=== PATIENT | male | born 1950 | race Caucasian/White ===

== ENCOUNTER 2019-12-30 18:07 | Inpatient (IN) | payer MEDICARE, OTHER ==
[~2019-12-30] VITALS: Ht 167.6 cm; Wt 88.5 kg
--- NOTE | 2019-12-30 18:30 | NUR ---
PT IS IN ROOM #4A. PT AND HIS DOUGHTER DID NOT BRING PT's HOME MEDICATION LIST. THEY RELATIVES ARE GOING TO BRING IT LATER.
--- NOTE | 2019-12-30 19:23 | NUR ---
dr Bello evaluated the pt.
[2019-12-30 19:26] LABS: BASOPHILS % (AUTO) 0.4 % (0.0-2.0); HEMATOCRIT 40.3 % (36.7-47.1); HEMOGLOBIN 13.5 g/dL (12.5-16.3); LYMPHOCYTES # (AUTO) 0.3 K/uL (20.0-40.0); LYMPHOCYTES % (AUTO) 2.5 % (20.5-51.5); MEAN CORPUSCULAR HEMOGLOBIN 30.3 uug (23.8-33.4); MEAN CORPUSCULAR HGB CONC 34 g/dL (32.5-36.3); MONOCYTES # (AUTO) 0.5 K/uL (2.0-10.0); MONOCYTES % (AUTO) 4.5 % (0.0-11.0); NEUTROPHILS # (AUTO) 10.5 K/uL (1.8-8.9); NEUTROPHILS % (AUTO) 92.6 % (38.5-71.5); PLATELET COUNT (AUTO) 178 K/uL (152-348); RED BLOOD CELL COUNT(AUTO) 4.47 MIL/uL (4.06-5.63); WHITE BLOOD COUNT (AUTO) 11.3 K/uL (3.6-10.2)
[2019-12-30 19:49] LABS: BILIRUBIN,DIRECT 0.3 mg/dL (0.0-0.2); BILIRUBIN,TOTAL 1.3 mg/dL (0.2-1.0); CREATININE 1.1 mg/dL (0.6-1.3); POTASSIUM 3.9 mmol/L (3.5-5.1); TOTAL PROTEIN, SERUM 6.9 g/dL (6.4-8.2)
[2019-12-30 19:49] LABS: *BILIRUBIN,URIN 2+ (NEGATIVE); *CLARITY,URINE CLEAR (CLEAR); *COLOR,URINE AMBER (YELLOW); *KETONES,URINE 1+ (NEGATIVE); LEUKOCYTE ESTERASE ,URINE 1+ (NEGATIVE); NITRITE, URINE POSITIVE (NEGATIVE); UGLUCOSE TRACE (NEGATIVE)
[2019-12-30 19:50] LABS: *BLOOD, URINE TRACE (NEGATIVE)
[2019-12-30 19:52] LABS: BACTERIA,URINE 2+ /HPF (NONE SEEN); MUCUS,URINE MANY /LPF (0-FEW); WBC,URINE 20-50 /HPF (0-3)
[2019-12-30] MEDS ORDERED: CEFTRIAXONE 1 G in IV DEXTROSE 5% 50 ML IV ONE (20:00)
[2019-12-30] MEDS ORDERED: CEFTRIAXONE /D5W 50ML IVPB **ER PYXIS IV ONE (20:36)
[2019-12-30 21:00] VITALS: BP 124/68
--- NOTE | 2019-12-30 21:06 | NUR ---
REPORT WAS GIVEN TO PATIENT CARE ASSOCIATE. PT WAS TRANSFERED TO ROOM #303.
[2019-12-30] MEDS ORDERED: MORPHINE SULFATE 2 MG/1 ML DISP.SYRIN IV PRN (21:45)
[2019-12-30] MEDS ORDERED: ONDANSETRON 4 MG/2 ML VIAL IV PRN (21:45)
[2019-12-30] MEDS ORDERED: ACETAMINOPHEN 325 MG TABLET PO PRN (21:45)
[2019-12-30] MEDS ORDERED: ENALAPRILAT DIHYDRATE 1.25 MG/1 ML VIAL IV PRN (21:45)
[2019-12-30] MEDS ORDERED: TEMAZEPAM 15 MG CAPSULE PO PRN (21:45)
[2019-12-30] MEDS ORDERED: MAGNESIUM HYDROXIDE 30 ML LIQUID UDC PO PRN (21:45)
[2019-12-31] VITALS: BP 112/58
--- NOTE | 2019-12-31 01:56 | NUR ---
ADMITTED, MALE WITH CHIEF COMPLAINED OF ALTERED MENTAL STATUS AND UTI ACCOMPANIED BY DAUGHTER. PT SPEAKS UKRAINIAN AND SALVADOREAN..PATIENT INCONTINENT OF URINE,CHANGED AND MADE COMFORTABLE.TELEMETRY SINUS RHYTHM WITH BUNDLE BRANCH.NO COMPLAINTS OF PAIN.
[2019-12-31 04:00] VITALS: BP 103/55
[2019-12-31 05:51] LABS: BASOPHILS % (AUTO) 0.7 % (0.0-2.0); EOSINOPHILS % (AUTO) 0.6 % (0.0-7.0); HEMATOCRIT 38.7 % (36.7-47.1); HEMOGLOBIN 13.1 g/dL (12.5-16.3); LYMPHOCYTES # (AUTO) 0.8 K/uL (20.0-40.0); LYMPHOCYTES % (AUTO) 11.8 % (20.5-51.5); MEAN CORPUSCULAR HEMOGLOBIN 30.3 uug (23.8-33.4); MEAN CORPUSCULAR HGB CONC 34 g/dL (32.5-36.3); MEAN CORPUSCULAR VOLUME 89.8 fL (73.0-96.2); MONOCYTES # (AUTO) 0.6 K/uL (2.0-10.0); MONOCYTES % (AUTO) 8.4 % (0.0-11.0); NEUTROPHILS # (AUTO) 5.4 K/uL (1.8-8.9); NEUTROPHILS % (AUTO) 78.5 % (38.5-71.5); PLATELET COUNT (AUTO) 173 K/uL (152-348); RED BLOOD CELL COUNT(AUTO) 4.31 MIL/uL (4.06-5.63); WHITE BLOOD COUNT (AUTO) 6.9 K/uL (3.6-10.2)
--- NOTE | 2019-12-31 06:09 | NUR ---
slept most of the nite,up in the bathroom with help, speaks arminian. in no acute distress.
[2019-12-31 06:31] LABS: BILIRUBIN,TOTAL 0.8 mg/dL (0.2-1.0); CREATININE 1.1 mg/dL (0.6-1.3); MAGNESIUM 1.8 mg/dL (1.8-2.4); PHOSPHOROUS 3.6 mg/dL (2.5-4.9); POTASSIUM 3.7 mmol/L (3.5-5.1); TOTAL PROTEIN, SERUM 6.3 g/dL (6.4-8.2)
[2019-12-31] MEDS ORDERED: TEMAZEPAM 7.5 MG CAPSULE PO PRN (06:45)
[2019-12-31 07:50] LABS: THYROID STIMULATING HORMONE 1.017 mIU/mL (0.358-3.740)
[2019-12-31] MEDS: ASPIRIN EC 81 MG TABLET.DR PO SCH (07:59)
[2019-12-31] MEDS: PANTOPRAZOLE SODIUM 40 MG TABLET.DR PO SCH (07:59)
[2019-12-31] MEDS: NICOTINE 21 MG/24HR PATCH TD SCH (11:49)
[2019-12-31 11:57] VITALS: BP 115/78
[2019-12-31 11:59] VITALS: BP 108/69
[2019-12-31 15:55] VITALS: BP 113/57
--- NOTE | 2019-12-31 19:30 | NUR ---
ALERT ORIENTED, SPEAK ESTONIAN, AT BEDSIDE. NO SOB NO CHEST PAIN, TELE MONITOR SINUS RHYTHM. PATIENT HAS NO COMPLAIN OF PAIN AT THIS TIME, CONT TO MONITOR.
[2019-12-31] MEDS ORDERED: CEFTRIAXONE 1 G in IV DEXTROSE 5% 50 ML IV SCH (20:00)
[2019-12-31 20:17] VITALS: BP 131/83
[2019-12-31] MEDS ORDERED: DOCUSATE SODIUM 250 MG CAPSULE PO SCH (21:00)
[2019-12-31] MEDS ORDERED: DOCUSATE SODIUM 100 MG CAPSULE PO SCH (21:00)
[2020-01-01 05:02] VITALS: BP 126/79
[2020-01-01] MEDS: PANTOPRAZOLE SODIUM 40 MG TABLET.DR PO SCH (06:33)
[2020-01-01 07:18] LABS: BASOPHILS % (AUTO) 0.8 % (0.0-2.0); EOSINOPHILS # (AUTO) 0.1 K/uL (0.0-0.7); EOSINOPHILS % (AUTO) 1.6 % (0.0-7.0); HEMATOCRIT 39.1 % (36.7-47.1); HEMOGLOBIN 12.9 g/dL (12.5-16.3); LYMPHOCYTES % (AUTO) 21.7 % (20.5-51.5); MEAN CORPUSCULAR HGB CONC 33 g/dL (32.5-36.3); MEAN CORPUSCULAR VOLUME 91.2 fL (73.0-96.2); MONOCYTES # (AUTO) 0.4 K/uL (2.0-10.0); MONOCYTES % (AUTO) 9.4 % (0.0-11.0); NEUTROPHILS # (AUTO) 3.2 K/uL (1.8-8.9); NEUTROPHILS % (AUTO) 66.5 % (38.5-71.5); PLATELET COUNT (AUTO) 152 K/uL (152-348); RED BLOOD CELL COUNT(AUTO) 4.29 MIL/uL (4.06-5.63)
[2020-01-01 07:24] LABS: CREATININE 0.8 mg/dL (0.6-1.3); MAGNESIUM 2.1 mg/dL (1.8-2.4); PHOSPHOROUS 3.4 mg/dL (2.5-4.9); POTASSIUM 3.8 mmol/L (3.5-5.1)
--- NOTE | 2020-01-01 07:29 | NUR ---
PATIENT ALERT SPEAK FAROESE, BUT UNDERSTAND TUVALUAN. TELE MONITOR SINUS RHYTHM. PATIENT ASSISTED WITH TOILETING, RENDERED GOOD SOPHIE CARE. PATIENT WAS MOVED TO CLOSE TO STATION RISK FOR FALL AND INJURY CONT TO MONITOR.
[2020-01-01 07:35] LABS: WHITE BLOOD COUNT (AUTO) 4.8 K/uL (3.6-10.2)
--- NOTE | 2020-01-01 07:50 | NUR ---
Patient is resting in bed, wakes up easily. Patient is A/O x 4. No distress noted. Heplock is intact. Sinus rhythm. Pt denies distress or pain.
[2020-01-01 08:00] VITALS: BP 134/77
[2020-01-01] MEDS: ASPIRIN EC 81 MG TABLET.DR PO SCH (09:19)
[2020-01-01] MEDS: NICOTINE 21 MG/24HR PATCH TD SCH (09:20)
[2020-01-01 12:10] VITALS: BP 118/77
[2020-01-01 16:14] VITALS: BP 134/84
--- NOTE | 2020-01-01 18:34 | NUR ---
patient is being discharged home. Pt's is here to pick him up. Discharge instructions are given, including prescriptions and abx treatment. Pt and his verbalize understanding. VS are stable, no distress. Heplock removed, no bleeding. All belongings returned.
== END 2020-01-01 18:36 | disposition home or self-care (01) | DRG 871 ==
LOC: ER 18:18 → TELE3 20:52 → MEDSURG3 01-01 13:18
PROVIDERS: ADMIT Internal Medicine; ATTEND Internal Medicine
DX: A41.51 Sepsis due to Escherichia coli [E. coli] (principal); G92 Toxic encephalopathy; I50.31 Acute diastolic (congestive) heart failure; N39.0 Urinary tract infection, site not specified; D68.59 Other primary thrombophilia; I11.0 Hypertensive heart disease with heart failure; F01.50 Vascular dementia, unspecified severity, without behavioral disturbance, psychotic disturbance, mood disturbance, and anxiety; M50.30 Other cervical disc degeneration, unspecified cervical region; F17.210 Nicotine dependence, cigarettes, uncomplicated; Z98.84 Bariatric surgery status; Z86.73 Personal history of transient ischemic attack (TIA), and cerebral infarction without residual deficits; K59.00 Constipation, unspecified; H40.9 Unspecified glaucoma; Z74.09 Other reduced mobility; E80.6 Other disorders of bilirubin metabolism; Z87.440 Personal history of urinary (tract) infections; Z79.82 Long term (current) use of aspirin; Z68.31 Body mass index [BMI] 31.0-31.9, adult; N40.0 Benign prostatic hyperplasia without lower urinary tract symptoms; I70.0 Atherosclerosis of aorta; I45.10 Unspecified right bundle-branch block; E66.9 Obesity, unspecified
CPT/HCPCS: 36415; 70030-TC; 70450; 71045; 72125; 83605; 83735; 84100; 84153; 84443; 85025; 85730; 87040; 87077; 87086; 93005; 93307; A4663; G0378; J0696; J3490; J7030; J7060

== ENCOUNTER 2021-04-20 18:33 | Inpatient (IN) | payer MEDICARE, OTHER ==
[~2021-04-20] VITALS: Ht 162.6 cm; Wt 86.2 kg
[~2021-04-20 18:33] MED LIST: AMLO10TA4 PO; ASPI-618 PO; CRAN450T9 PO; DOCU100C36 PO; HYDR12.55 PO; LEVO500T2 PO; MULT-594 PO; NICO-780 TD
--- NOTE | 2021-04-20 18:49 | NUR ---
Dr Jenkins at the bedside for MSE.
[2021-04-20] MEDS ORDERED: IV NS 1000 ML 1,000 ML IV ONE (19:00)
--- NOTE | 2021-04-20 19:08 | NUR ---
COVID 19 swab collected and sent to LAB.
--- NOTE | 2021-04-20 19:09 | NUR ---
Handsoff report given to Pete ARRIAGA, shift foreman.
[2021-04-20 19:14] LABS: HEMATOCRIT 38.2 % (36.7-47.1); MEAN CORPUSCULAR VOLUME 91.6 fL (73.0-96.2); PLATELET COUNT (AUTO) 174 K/uL (152-348)
[2021-04-20 19:16] LABS: CREATININE 0.9 mg/dL (0.6-1.3); POTASSIUM 3.7 mmol/L (3.5-5.1)
[2021-04-20 19:21] LABS: BILIRUBIN,DIRECT 0.1 mg/dL (0.0-0.2); BILIRUBIN,TOTAL 0.4 mg/dL (0.2-1.0); TOTAL PROTEIN, SERUM 6.6 g/dL (6.4-8.2)
--- NOTE | 2021-04-20 19:52 | NUR ---
Inserted pearson catheter, pt tolerated procedure well, urine sample collected, sent to lab.
[2021-04-20 19:58] LABS: *BILIRUBIN,URIN 1+ (NEGATIVE); *BLOOD, URINE 3+ (NEGATIVE); *CLARITY,URINE CLEAR (CLEAR); *COLOR,URINE YELLOW (YELLOW); *KETONES,URINE 1+ (NEGATIVE); LEUKOCYTE ESTERASE ,URINE 1+ (NEGATIVE); NITRITE, URINE NEGATIVE (NEGATIVE); UGLUCOSE NEGATIVE (NEGATIVE)
[2021-04-20 20:16] LABS: BACTERIA,URINE FEW /HPF (NONE SEEN); RBC,URINE 20-50 /HPF (0-3); SQUAMOUS EPITHELIAL CELL,UR FEW /HPF (NONE SEEN)
[2021-04-20 20:17] LABS: RED BLOOD CELL CASTS,URINE FEW /LPF (NONE SEEN)
[2021-04-20] MEDS ORDERED: CEFTRIAXONE /D5W 50ML IVPB **ER PYXIS IV ONE (20:26)
[2021-04-20] MEDS ORDERED: CEFTRIAXONE 1 G in IV DEXTROSE 5% 50 ML IV ONE (20:30)
--- NOTE | 2021-04-20 20:54 | NUR ---
[facility]ed [facility] page Daphnie Naranjo NP.
--- NOTE | 2021-04-20 21:05 | NUR ---
Dr. Jenkins on panel call with Daphnie Naranjo. Patient accepted for admission to [facility], diagnosis: near syncope and uti.
--- NOTE | 2021-04-20 22:16 | NUR ---
Report given to Melani ARRIAGA Tele.
--- NOTE | 2021-04-20 22:30 | NUR ---
in from er per sheela with cc of near syncope,UTI, fixed in bed and made comfortable.
--- NOTE | 2021-04-20 22:58 | NUR ---
JUAN C Naranjo paged for admitting orders . called and talked to the patient , responded will do the orders now,
--- NOTE | 2021-04-20 23:18 | NUR ---
Awaiting for orders from JUAN C Naranjo
[2021-04-20] MEDS ORDERED: IV NS 1000 ML 1,000 ML IV PRN (23:30)
[2021-04-20] MEDS ORDERED: ACETAMINOPHEN 325 MG TABLET PO PRN (23:30)
[2021-04-20] MEDS ORDERED: ONDANSETRON 4 MG/2 ML VIAL IV PRN (23:30)
[2021-04-20] MEDS ORDERED: MAGNESIUM HYDROXIDE 30 ML LIQUID UDC PO PRN (23:30)
[2021-04-20] MEDS ORDERED: Z GUARD REMEDY PASTE 57 GM TUBE TOP PRN (23:30)
[2021-04-20 23:43] VITALS: BP 107/55
--- NOTE | 2021-04-20 23:51 | NUR ---
with orders and carried out, medication from home not yet reconciled but is aware
--- NOTE | 2021-04-21 02:13 | NUR ---
Sleeping internittently
--- NOTE | 2021-04-21 03:44 | NUR ---
ambulated to the bedside and voided freely.noted a reddened area to the middle of the nape draining with small amount of serosanguineous drainage. picture taken, back to bed and kept comfortable. with bed alarm on with call light within reach
[2021-04-21 04:46] VITALS: BP 109/55
[2021-04-21 06:25] VITALS: BP_SYST 102; BP_SYST 116; BP_SYST 122; BP_DIAS 54; BP_DIAS 76
[2021-04-21 06:46] LABS: HEMATOCRIT 37.2 % (36.7-47.1); MEAN CORPUSCULAR HEMOGLOBIN 31.1 uug (23.8-33.4); PLATELET COUNT (AUTO) 151 K/uL (152-348)
[2021-04-21] MEDS: PANTOPRAZOLE SODIUM 40 MG TABLET.DR PO SCH (06:50)
[2021-04-21 06:54] LABS: CREATININE 0.7 mg/dL (0.6-1.3); MAGNESIUM 1.8 mg/dL (1.8-2.4); PHOSPHOROUS 3.5 mg/dL (2.5-4.9); POTASSIUM 3.4 mmol/L (3.5-5.1)
--- NOTE | 2021-04-21 07:00 | NUR ---
RECEIVED PT AWAKE, ALERT AND ORIENTEDX3. PT IN NO ACUTE DISTRESS. IV INTACT. PT ON ROOM AIR. PT ON SINUS RHYTHM. SAFETY AND COMFORT PROVIDED. WILL CONTINUE TO MONITOR.
--- NOTE | 2021-04-21 07:23 | NUR ---
home medication not reconciled Radha Bedoya is aware, day shift rn is aware and will follow up with the physician today
[2021-04-21 07:29] LABS: THYROID STIMULATING HORMONE 1.269 mIU/mL (0.358-3.740)
[2021-04-21] MEDS ORDERED: POTASSIUM CHLORIDE 20 MEQ TAB.PRT.SR PO ONE (10:00)
--- NOTE | 2021-04-21 11:00 | NUR ---
called and ask update regarding her .PT stable. Will continue to monitor.
[2021-04-21 12:00] VITALS: BP 114/60
--- NOTE | 2021-04-21 15:40 | NUR ---
DR DALTON TALKED WITH THE PT AND .
[2021-04-21] MEDS: POTASSIUM CHLORIDE 20 MEQ in IV NS 1000 ML 1,000 ML IV PRN (16:33)
[2021-04-21 16:59] VITALS: BP 134/59
--- NOTE | 2021-04-21 18:58 | NUR ---
PT IN NO ACUTE DISTRESS. IV INTACT. PT ON SINUS RHYTHM. SAFETY AND COMFORT PROVIDED. WILL ENDORSE TO INCOMING NURSE FOR CONTINUITY OF CARE.
--- NOTE | 2021-04-21 19:30 | NUR ---
Patient alert speak Prydeinig but understand Latvian, tele monitor sinus rhythm at this time. Patient has no complain of pain, no sob no chest pain. Patient forgetful, forget to use call lights, get up by himself wants to go to bathroom, bed alarm in place will move patient close to the station for close monitoring. cont to monitor.
[2021-04-21 20:10] VITALS: BP 113/63
[2021-04-21] MEDS: CEFTRIAXONE 1 G in IV DEXTROSE 5% 50 ML IV SCH (20:23)
[2021-04-21] MEDS: DOCUSATE SODIUM 100 MG CAPSULE PO SCH (20:24)
[2021-04-21] MEDS: ATORVASTATIN 10 MG TABLET PO SCH (20:24)
--- NOTE | 2021-04-21 23:00 | NUR ---
Patient was moved from 301B to 311 close to station for close monitoring.
[2021-04-22 00:05] VITALS: BP 119/84
[2021-04-22 04:11] VITALS: BP 116/77
[2021-04-22 06:05] LABS: HEMATOCRIT 40.1 % (36.7-47.1); MEAN CORPUSCULAR HEMOGLOBIN 30.5 uug (23.8-33.4); MEAN CORPUSCULAR VOLUME 91.7 fL (73.0-96.2); PLATELET COUNT (AUTO) 156 K/uL (152-348)
[2021-04-22 06:26] LABS: CARBON DIOXIDE 27 mmol/L (21-32); CHLORIDE 108 mmol/L (98-107); CREATININE 0.6 mg/dL (0.6-1.3); GLUCOSE 91 mg/dL (74-106); MAGNESIUM 1.8 mg/dL (1.8-2.4); PHOSPHOROUS 3.4 mg/dL (2.5-4.9); POTASSIUM 3.7 mmol/L (3.5-5.1); UREA NITROGEN, BLOOD 13 mg/dL (7-18)
[2021-04-22] MEDS: PANTOPRAZOLE SODIUM 40 MG TABLET.DR PO SCH (06:28)
--- NOTE | 2021-04-22 07:06 | NUR ---
PATIENT ALERT BUT FORGETFUL, NO SOB NO CHEST PAIN, SINUS RHYTHM AT THIS TIME. PATIENT HAS MULTIPLE ATTEMPT TO GET OUT OF BED BUT FORGET TO ASK FOR ASSISTANCE, ASSISTED WITH TOILETING, ALSO USES URINAL, CONT TO MONITOR.
--- NOTE | 2021-04-22 07:51 | NUR ---
awake and responsive, trying to get up unassisted. reoriented but patient is confused. no acute distress. iv intact and infusing well. safety and fall precautions maintained. personal items and call light in reach. patient is encouraged to use call light continue to monitor.
[2021-04-22] MEDS: MULTIVITAMINS,THERAPEUTIC TABLET PO SCH (08:13)
[2021-04-22] MEDS: ASPIRIN EC 81 MG TABLET.DR PO SCH (08:13)
[2021-04-22] MEDS ORDERED: Medication Not On Formulary EA (Multivitamins (Multivitamin) 1 EACH) PO SCH (09:00)
[2021-04-22] MEDS: POTASSIUM CHLORIDE 20 MEQ in IV NS 1000 ML 1,000 ML IV PRN (10:04)
[2021-04-22 11:18] VITALS: BP 119/67
--- NOTE | 2021-04-22 13:00 | NUR ---
Patient seen by JUAN C Perdomo, at bedside.
--- NOTE | 2021-04-22 14:50 | NUR ---
Patient still trying to get up from bed unassisted. Reoriented. Frequent visual checks done. Needs attended. Will continue to monitor.
[2021-04-22 15:16] VITALS: BP 132/80
--- NOTE | 2021-04-22 18:56 | NUR ---
Alert and oriented but with episodes of confusion and forgetfulness. In no acute distress. No s/sx of pain or discomfort. Due meds given and tolerated. Prefers to void in the urinal or bathroom. No hematuria noted. No dysuria noted. Safety and fall precautions maintained at all times. Personal items within reach. Bed is low and locked. Patient is comfortable.
[2021-04-22 20:13] VITALS: BP 112/67
[2021-04-22] MEDS: DOCUSATE SODIUM 100 MG CAPSULE PO SCH (20:27)
[2021-04-22] MEDS: CEFTRIAXONE 1 G in IV DEXTROSE 5% 50 ML IV SCH (20:27)
[2021-04-22] MEDS: ATORVASTATIN 10 MG TABLET PO SCH (20:27)
[2021-04-23 00:16] VITALS: BP 131/73
[2021-04-23] MEDS: POTASSIUM CHLORIDE 20 MEQ in IV NS 1000 ML 1,000 ML IV PRN (03:22)
[2021-04-23 04:09] VITALS: BP 111/67
[2021-04-23 06:31] LABS: HEMATOCRIT 42.1 % (36.7-47.1); MEAN CORPUSCULAR HEMOGLOBIN 30.6 uug (23.8-33.4); MEAN CORPUSCULAR VOLUME 91.8 fL (73.0-96.2); PLATELET COUNT (AUTO) 176 K/uL (152-348)
[2021-04-23] MEDS: PANTOPRAZOLE SODIUM 40 MG TABLET.DR PO SCH (06:36)
[2021-04-23 06:42] LABS: CREATININE 0.7 mg/dL (0.6-1.3); MAGNESIUM 1.9 mg/dL (1.8-2.4)
--- NOTE | 2021-04-23 07:32 | NUR ---
2129 patient has episode of 5 bets of vtach followed by run off pvc. patient alert awake asymptomatic, unstainable, no complain of discomfort, v/s stable, cont to monitor. endorsed to next shift.
[2021-04-23 08:00] VITALS: BP 121/74
--- NOTE | 2021-04-23 08:00 | NUR ---
AWAKE ALERT AND VERBALLY RESPONSIVE, SPEAKS CAPE VERDEAN AND SENEGALESE. DENIES PAIN OR SOB ON ASSESSMENT. AWAITING HOSPITALIST REGARDING PLAN OF CARE
[2021-04-23] MEDS: ASPIRIN EC 81 MG TABLET.DR PO SCH (08:35)
[2021-04-23] MEDS: MULTIVITAMINS,THERAPEUTIC TABLET PO SCH (08:35)
--- NOTE | 2021-04-23 10:00 | NUR ---
SEEN BY PHYSICAL THERAPIST SEE NOTES
[2021-04-23] MEDS ORDERED: CEPH500C2 PO (11:00)
--- NOTE | 2021-04-23 13:00 | NUR ---
SEEN BY HOSPITALIST AYAAN, DISCHARGE ORDER GIVEN. CASE MANGER NOTIFIED, SPOKE WITH XAVI AND SAID WILL EXPORT SALES ASSISTANT PATIENT WITH PRIVATE CAR
--- NOTE | 2021-04-23 13:30 | NUR ---
discharged home stable accompanied by with priscription and follow-up instruction
== END 2021-04-23 13:30 | disposition home or self-care (01) | DRG 871 ==
LOC: ER 18:36 → TELE3 22:25
PROVIDERS: ADMIT Internal Medicine; ATTEND Nurse Practitioner Family
DX: A41.9 Sepsis, unspecified organism (principal); G92 Toxic encephalopathy; I50.31 Acute diastolic (congestive) heart failure; N39.0 Urinary tract infection, site not specified; D68.59 Other primary thrombophilia; E03.9 Hypothyroidism, unspecified; E66.9 Obesity, unspecified; E78.5 Hyperlipidemia, unspecified; F17.210 Nicotine dependence, cigarettes, uncomplicated; I11.0 Hypertensive heart disease with heart failure; F01.50 Vascular dementia, unspecified severity, without behavioral disturbance, psychotic disturbance, mood disturbance, and anxiety; Z20.822 Contact with and (suspected) exposure to COVID-19; Z79.82 Long term (current) use of aspirin; Z86.73 Personal history of transient ischemic attack (TIA), and cerebral infarction without residual deficits; Z74.09 Other reduced mobility; M50.30 Other cervical disc degeneration, unspecified cervical region; M19.09 Primary osteoarthritis, other specified site; K59.00 Constipation, unspecified; H40.9 Unspecified glaucoma; B95.4 Other streptococcus as the cause of diseases classified elsewhere; Z68.32 Body mass index [BMI] 32.0-32.9, adult
CPT/HCPCS: 36415; 70030-TC; 71045; 83605; 83735; 84100; 84443; 85025; 87040; 87086; 93005; 93307; 93880; A4663; G0378; J0696; J3480; J7030; J7060

== ENCOUNTER 2021-08-27 10:30 | Emergency (ER) | payer MEDICARE, OTHER ==
[~2021-08-27] VITALS: Ht 167.6 cm; Wt 81.6 kg
[~2021-08-27 10:30] MED LIST changes: +CEPH500C2 PO; -LEVO500T2 PO
[2021-08-27] MEDS ORDERED: MIRA50TA PO (11:40)
[2021-08-27] MEDS ORDERED: TAMS-3 PO (11:40)
--- NOTE | 2021-08-27 11:45 | NUR ---
PATIENT CAME INTO THE ER FROM HOME WITH A C/C OF NOT BEING ABLE TO URINTE FOR THE PAST DAY. PATIENT HAS AN UNKNOWN HISTORY DUE TO LANGUAGE BARRIER. PATIENT IS AAOX4, NAD, DENIES SOB AND DENIES N/V/D. PATIENT IS IN GOWN, ON MONITORS, 20 G ESTABLISHED IN THE LEFT AC. PENDING MD ORDERS.
--- NOTE | 2021-08-27 11:50 | NUR ---
ACOSTA CATHER INSERTED AND 950 URINE OUTPUT
--- NOTE | 2021-08-27 11:52 | NUR ---
LABS COLLECTED AND SENT FOR TESTING. PENDING RESULTS.
[2021-08-27 12:00] LABS: HEMATOCRIT 40.8 % (36.7-47.1); MEAN CORPUSCULAR HEMOGLOBIN 31.4 uug (23.8-33.4); MEAN CORPUSCULAR VOLUME 92.7 fL (73.0-96.2); PLATELET COUNT (AUTO) 214 K/uL (152-348)
[2021-08-27 12:03] LABS: *BILIRUBIN,URIN NEGATIVE (NEGATIVE); *BLOOD, URINE 2+ (NEGATIVE); *CLARITY,URINE CLEAR (CLEAR); *COLOR,URINE YELLOW (YELLOW); *KETONES,URINE NEGATIVE (NEGATIVE); LEUKOCYTE ESTERASE ,URINE NEGATIVE (NEGATIVE); NITRITE, URINE NEGATIVE (NEGATIVE); PH,URINE 7.5 (5.0-8.0); UGLUCOSE NEGATIVE (NEGATIVE)
--- NOTE | 2021-08-27 12:06 | NUR ---
PATIENT IN BED RESTING.
[2021-08-27 12:09] LABS: CREATININE 0.9 mg/dL (0.6-1.3); POTASSIUM 3.9 mmol/L (3.5-5.1)
[2021-08-27 12:15] LABS: BILIRUBIN,DIRECT 0.2 mg/dL (0.0-0.2); BILIRUBIN,TOTAL 0.6 mg/dL (0.2-1.0); TOTAL PROTEIN, SERUM 8.4 g/dL (6.4-8.2)
--- NOTE | 2021-08-27 14:38 | NUR ---
PATIENT CAME INTO THE ED FROM HOME WITH A C/C OF NAUSEA AND VOMITING FOR THE PAST 2 DAYS. PATIENT HAS NO KNOWN MEDICAL HISTORY. PATIENT SKIN LOOKS DRY UPON ASSESSMENT. PATIENT IS IN GOWN, ON MONITORS, AAOX4, NO VOMITING SINCE BEING ADMITTED TO THE ED, BUT REPORTS NAUSEA. 20 G ESTABLISHED IN HER RIGHT WRIST AND LINE IS PATENT. PENDING MD ORDERS.
[2021-08-27 14:50] LABS: BACTERIA,URINE NONE SEEN /HPF (NONE SEEN); WBC,URINE 0-3 /HPF (0-3)
--- NOTE | 2021-08-27 15:07 | NUR ---
PT WAS D/C'd TO HOME AFTER DR VILLALBA RE-EVALUATION. D/CINSTRUCTIONS GIVEN TO THE PT BY DR VILLALBA.
== END 2021-08-27 15:08 | disposition home or self-care (01) ==
LOC: ER 10:30
DX: N40.1 Benign prostatic hyperplasia with lower urinary tract symptoms (principal); R33.8 Other retention of urine; Z98.84 Bariatric surgery status; Z79.899 Other long term (current) drug therapy; Z86.73 Personal history of transient ischemic attack (TIA), and cerebral infarction without residual deficits; F03.90 Unspecified dementia, unspecified severity, without behavioral disturbance, psychotic disturbance, mood disturbance, and anxiety; R03.0 Elevated blood-pressure reading, without diagnosis of hypertension
CPT/HCPCS: 36415; 51702; 85025; A4663

== ENCOUNTER 2021-08-29 20:30 | Emergency (ER) | payer MEDICARE, OTHER ==
[~2021-08-29] VITALS: Ht 167.6 cm; Wt 86.2 kg
[~2021-08-29 20:30] MED LIST changes: -ASPI-618 PO; -CEPH500C2 PO; -DOCU100C36 PO; +MIRA50TA PO; -NICO-780 TD; +TAMS-3 PO
--- NOTE | 2021-08-29 21:30 | NUR ---
Dr. Shannon at bedside for MSE.
--- NOTE | 2021-08-29 22:14 | NUR ---
Irrigated pearson catheter, flushed with 60cc sterile water, output of 60cc, urine sample collected, sent to lab, replaced leg bag, instructed patient on d/c of leg bag.
[2021-08-29 22:19] LABS: *BILIRUBIN,URIN 1+ (NEGATIVE); *BLOOD, URINE 3+ (NEGATIVE); *CLARITY,URINE CLOUDY (CLEAR); *COLOR,URINE DARK YELLOW (YELLOW); *KETONES,URINE TRACE (NEGATIVE); LEUKOCYTE ESTERASE ,URINE 1+ (NEGATIVE); NITRITE, URINE POSITIVE (NEGATIVE); UGLUCOSE NEGATIVE (NEGATIVE)
[2021-08-29] MEDS ORDERED: CEFTRIAXONE 1 G VIAL IM ONE (22:30)
[2021-08-29] MEDS ORDERED: NITROFURANTOIN/NITROFURAN MAC 100 MG CAPSULE PO ONE ×2 (22:30→22:38)
[2021-08-29] MEDS ORDERED: NITR-84 PO (22:31)
[2021-08-29] MEDS ORDERED: CEPH500T PO (22:31)
[2021-08-29 22:38] VITALS: BP 155/90
[2021-08-29] MEDS ORDERED: CEFTRIAXONE 1 G VIAL ONE (22:38)
--- NOTE | 2021-08-29 22:38 | NUR ---
Patient discharged to home in stable condition. Written and verbal after care instructions given. Patient verbalizes understanding of instructions. Stressed follow up or return to ER for worsening s/s. Patient out of ER with steady gait, no acute signs of distress, VSS, all belongings taken, provided with copies of lab results.
[2021-08-29] MEDS ORDERED: LIDOCAINE HCL 1% 20 ML VIAL ONE (22:39)
[2021-08-29 23:18] LABS: BACTERIA,URINE MANY /HPF (NONE SEEN); SQUAMOUS EPITHELIAL CELL,UR FEW /HPF (NONE SEEN); TRIPLE PHOSPHATE CRYSTAL,UR MODERATE /HPF (NONE SEEN)
== END 2021-08-29 22:39 | disposition home or self-care (01) ==
LOC: ER 21:21
DX: Z43.6 Encounter for attention to other artificial openings of urinary tract (principal); N39.0 Urinary tract infection, site not specified; F01.50 Vascular dementia, unspecified severity, without behavioral disturbance, psychotic disturbance, mood disturbance, and anxiety; Z98.84 Bariatric surgery status; Z86.73 Personal history of transient ischemic attack (TIA), and cerebral infarction without residual deficits; I45.10 Unspecified right bundle-branch block
CPT/HCPCS: 81001; 87077; 87086; 87186; 96372; 99284; J0696; J3490; A4217; A4663

== ENCOUNTER 2022-04-08 12:51 | Inpatient (IN) | payer MEDICARE, OTHER ==
[~2022-04-08] VITALS: Ht 165.1 cm; Wt 80.3 kg
[~2022-04-08 12:51] MED LIST changes: +CEPH500T PO; +NITR-84 PO
--- NOTE | 2022-04-08 13:35 | NUR ---
patient being seen by Dr. Obregon. Is evaluating at bedside
[2022-04-08] MEDS ORDERED: IV NORMAL SALINE 1000 ML BAG IV ONE (13:45)
[2022-04-08] MEDS ORDERED: CEFTRIAXONE 1 G in IV DEXTROSE 5% 50 ML IV ONE (13:45)
[2022-04-08] MEDS ORDERED: CEFTRIAXONE /D5W 50ML IVPB **ER PYXIS IV ONE (13:52)
[2022-04-08 13:58] LABS: *BILIRUBIN,URIN 1+ (NEGATIVE); *BLOOD, URINE 2+ (NEGATIVE); *CLARITY,URINE CLEAR (CLEAR); *KETONES,URINE TRACE (NEGATIVE); LEUKOCYTE ESTERASE ,URINE NEGATIVE (NEGATIVE); NITRITE, URINE NEGATIVE (NEGATIVE); UGLUCOSE NEGATIVE (NEGATIVE)
[2022-04-08 14:08] LABS: *COLOR,URINE DARK YELLOW (YELLOW)
[2022-04-08 14:12] LABS: BACTERIA,URINE FEW /HPF (NONE SEEN); WBC,URINE 0-3 /HPF (0-3)
[2022-04-08 14:12] LABS: HEMATOCRIT 38.1 % (36.7-47.1); MEAN CORPUSCULAR HEMOGLOBIN 30.8 uug (23.8-33.4); MEAN CORPUSCULAR VOLUME 90.8 fL (73.0-96.2); PLATELET COUNT (AUTO) 139 K/uL (152-348)
[2022-04-08 14:13] LABS: SQUAMOUS EPITHELIAL CELL,UR MODERATE /HPF (NONE SEEN)
[2022-04-08 14:15] LABS: CARBON DIOXIDE 28 mmol/L (21-32); CHLORIDE 96 mmol/L (98-107); CREATININE 1.4 mg/dL (0.6-1.3); GLUCOSE 90 mg/dL (74-106); POTASSIUM 3.8 mmol/L (3.5-5.1); UREA NITROGEN, BLOOD 23 mg/dL (7-18)
[2022-04-08 14:27] LABS: ALANINE AMINOTRANSFERASE 36 U/L (16-63); ALKALINE PHOSPHATASE 38 U/L (50-136); ASPARTATE AMINOTRANSFERASE 28 U/L (15-37); BILIRUBIN,DIRECT 0.1 mg/dL (0.0-0.2); BILIRUBIN,TOTAL 0.4 mg/dL (0.2-1.0); TOTAL PROTEIN, SERUM 7.2 g/dL (6.4-8.2)
--- NOTE | 2022-04-08 16:59 | NUR ---
spoke to daughter for update. plan to admit patient.
--- NOTE | 2022-04-08 17:31 | NUR ---
pending bed availiability.
--- NOTE | 2022-04-08 17:38 | NUR ---
patient to be admitted MS with Dx weakness and UTI, awaiting for bed availability
--- NOTE | 2022-04-08 19:00 | NUR ---
RECEIVED REPORT FROM CORINA COTTO. PT NOTED TO BE IN BED, AT BEDSIDE. PT IS A/O X2-3, DENIES ANY ORTIZ/DIZZYNESS. NO N/V/D. BED IN LOWEST POSITION FOR SAFETY PRECAUTIONS.
--- NOTE | 2022-04-08 21:18 | NUR ---
DR. RODRIGUEZ AWARE OF PT'S ORAL TEMP OF 101.4, NO NEW ORDERS.
--- NOTE | 2022-04-08 21:30 | NUR ---
GAVE REPORT TO SULEIMAN.
--- NOTE | 2022-04-08 21:40 | NUR ---
Pt. admitted to Med Surg Room 320 , under care of Dr. Michael Milton Dx: UTI, generalized weakness Belongs List completed Pt admitted in stable conditon, denies ORTIZ/dizzyness. No changes in LOC.
--- NOTE | 2022-04-08 21:40 | NUR ---
Received pt via janelle assisted by RN. Mckenna. C/o of generalized weakness with Diagnosis of Covid-19. On Room air. No respiratory distress noted. All belongings checked. IV on left hand 20 g intact and patent. All needs attended. Safety measures implemented. Will continue to monitor.
[2022-04-08 22:18] VITALS: BP 139/88
[2022-04-08] MEDS ORDERED: ONDANSETRON 4 MG/2 ML VIAL IV PRN (23:15)
[2022-04-08] MEDS ORDERED: REMEDY ESSENTIAL ZINC PASTE 113 GM TP PRN (23:15)
[2022-04-08] MEDS ORDERED: ACETAMINOPHEN 325 MG TABLET PO PRN (23:15)
[2022-04-09] MEDS ORDERED: AZITHROMYCIN 500MG/ D5W 250ML IVPB **ER PYXIS ONLY IV ONE (00:03)
[2022-04-09] MEDS: DEXAMETHASONE SOD PHOSPHATE 4 MG INJ IV SCH ×2 (00:09→08:23)
[2022-04-09] MEDS: ENOXAPARIN SODIUM 40 MG/0.4 ML DISP.SYRIN SQ SCH ×2 (00:09→21:16)
[2022-04-09] MEDS: IV NS 1000 ML 1,000 ML IV PRN ×2 (00:09→18:01)
[2022-04-09] MEDS: AZITHROMYCIN IV 500 MG in IV DEXTROSE 5% 250 ML IV SCH ×2 (00:10→21:14)
[2022-04-09 04:00] VITALS: BP 121/78
[2022-04-09 06:09] LABS: HEMATOCRIT 39.6 % (36.7-47.1); MEAN CORPUSCULAR HEMOGLOBIN 30.8 uug (23.8-33.4); MEAN CORPUSCULAR VOLUME 89.4 fL (73.0-96.2); PLATELET COUNT (AUTO) 118 K/uL (152-348)
[2022-04-09] MEDS: PANTOPRAZOLE SODIUM 40 MG TABLET.DR PO SCH (06:09)
[2022-04-09 06:35] LABS: THYROID STIMULATING HORMONE 0.402 mIU/mL (0.358-3.740)
[2022-04-09 06:37] LABS: CREATININE 0.9 mg/dL (0.6-1.3); MAGNESIUM 1.8 mg/dL (1.8-2.4); PHOSPHOROUS 4.2 mg/dL (2.5-4.9); POTASSIUM 3.5 mmol/L (3.5-5.1)
--- NOTE | 2022-04-09 06:48 | NUR ---
Slept throughout the night. Denies pain or SOB, pt on RA tolerating well. Tolerated all medications given. IV site intact. Safety maintained throughout the shift. Will endorse to day shift.
[2022-04-09] MEDS: HYDROCHLOROTHIAZIDE 12.5 MG CAPSULE PO SCH (08:27)
[2022-04-09] MEDS: AMLODIPINE 10 MG TABLET PO SCH ×2 (08:28→21:18)
[2022-04-09] MEDS ORDERED: TAMSULOSIN HCL 0.4 MG CAP.SR.24H PO SCH (09:00)
--- NOTE | 2022-04-09 09:00 | NUR ---
Patient is AAO x4, speaking Russsia and Yoruba. Denies any pain or coughing. No SOB noted. Remains on RA. Patient continues on Zithromax and Decadron, no adverse reactions noted. Patient assisted to bathroom, able to void well. Has a good appetite, able to eat 100% of breakfast brought in by family. Spoke to marv, and daughter Bruna and provided an update on patient's status. All needs attended, call light within reach.
[2022-04-09 12:03] VITALS: BP 128/67
[2022-04-09] MEDS ORDERED: BIMA2.5D5 EACHEYE (14:05)
[2022-04-09] MEDS ORDERED: BRIM5DRO11 EACHEYE (14:05)
[2022-04-09] MEDS ORDERED: DORZ10DR10 EACHEYE (14:05)
[2022-04-09] MEDS ORDERED: NETA2.5D EACHEYE (14:06)
[2022-04-09] MEDS: BRIMONIDINE 0.2% OPHT DROP 10 ML BOTTLE EACHEYE SCH (16:31)
[2022-04-09] MEDS: DORZOLAMIDE 2% OPHT DROP 10 ML BOTTLE EACHEYE SCH (16:32)
[2022-04-09 18:11] VITALS: BP 122/70
--- NOTE | 2022-04-09 20:00 | NUR ---
RECEIVED PATIENT ASLEEP IN BED. S/S OF ANY PAIN OR DISCOMFORT. NO RESP. DISTRESS NOTED. IVF INFUSING WELL TO RIGHT FA #20 GAUGE. VS WNL. ON ISOLATION FOR COVID-19. CALL LIGHT IN REACH. ALL NEEDS ATTENDED. WILL CONTINUE TO MONITOR AND ASSESS.
[2022-04-09 20:41] VITALS: BP 152/95
[2022-04-09] MEDS: LATANOPROST OPHT DROP 2.5 ML BOTTLE EACHEYE SCH (21:00)
[2022-04-10 04:42] VITALS: BP 121/68
[2022-04-10] MEDS: IV NS 1000 ML 1,000 ML IV PRN (06:03)
[2022-04-10] MEDS: PANTOPRAZOLE SODIUM 40 MG TABLET.DR PO SCH (06:03)
[2022-04-10 07:12] LABS: CREATININE 0.9 mg/dL (0.6-1.3); MAGNESIUM 1.5 mg/dL (1.8-2.4); PHOSPHOROUS 3.8 mg/dL (2.5-4.9); POTASSIUM 3.3 mmol/L (3.5-5.1)
[2022-04-10 07:54] LABS: HEMATOCRIT 39.4 % (36.7-47.1); MEAN CORPUSCULAR HEMOGLOBIN 30.7 uug (23.8-33.4); MEAN CORPUSCULAR VOLUME 88.9 fL (73.0-96.2); PLATELET COUNT (AUTO) 118 K/uL (152-348)
[2022-04-10] MEDS: AMLODIPINE 10 MG TABLET PO SCH (08:42)
[2022-04-10] MEDS: HYDROCHLOROTHIAZIDE 12.5 MG CAPSULE PO SCH (08:42)
[2022-04-10] MEDS: DEXAMETHASONE SOD PHOSPHATE 4 MG INJ IV SCH (08:42)
[2022-04-10] MEDS: BRIMONIDINE 0.2% OPHT DROP 10 ML BOTTLE EACHEYE SCH ×3 (08:50→17:22)
[2022-04-10] MEDS: DORZOLAMIDE 2% OPHT DROP 10 ML BOTTLE EACHEYE SCH ×3 (08:50→17:22)
[2022-04-10] MEDS ORDERED: POTASSIUM CHLORIDE 20 MEQ TAB.PRT.SR PO ONE (09:15)
[2022-04-10] MEDS: MAGNESIUM SULFATE/D5W 100 ML IV SCH ×2 (10:05→11:21)
[2022-04-10 11:11] VITALS: BP 129/66
--- NOTE | 2022-04-10 12:00 | NUR ---
Awake this shift. Speaks Russsian and Gambian. Denies any pain. No SOB or coughing noted, on RA. Patient assisted to bathroom, able to void well, also had one episode of urine incontinence- assisted with hygiene. Has a good appetite, able to eat 100% of breakfast . Spoke to Bruna and updated on patients status, patient has plans for DC tomorrow. All needs attended, call light within reach.
[2022-04-10 15:01] VITALS: BP 121/80
--- NOTE | 2022-04-10 19:15 | NUR ---
Received patient on bed, not in respiratory distress, on room air, no complaint of pain at this time, with ongoing IVF NS 1L at 75cc/HR, safety precautions provided, call light placed within reach.
[2022-04-10 20:17] VITALS: BP 114/72
[2022-04-10] MEDS: AZITHROMYCIN IV 500 MG in IV DEXTROSE 5% 250 ML IV SCH (20:59)
[2022-04-10] MEDS: TAMSULOSIN HCL 0.4 MG CAP.SR.24H PO SCH (21:02)
[2022-04-10] MEDS: LATANOPROST OPHT DROP 2.5 ML BOTTLE EACHEYE SCH (21:05)
[2022-04-10] MEDS: ENOXAPARIN SODIUM 40 MG/0.4 ML DISP.SYRIN SQ SCH (21:16)
--- NOTE | 2022-04-10 22:00 | NUR ---
IV access dislodged, removed, inserted new IV line at right forearm G22.
[2022-04-11 00:33] VITALS: BP 118/76
[2022-04-11 04:59] VITALS: BP 97/63
[2022-04-11 06:18] LABS: PHOSPHOROUS 3.8 mg/dL (2.5-4.9); POTASSIUM 3.7 mmol/L (3.5-5.1)
[2022-04-11] MEDS: PANTOPRAZOLE SODIUM 40 MG TABLET.DR PO SCH (06:26)
--- NOTE | 2022-04-11 06:41 | NUR ---
Slept well within the shift, on room air, not in respiratory distress, No complaint of pain. Vitally stable, For continuity of care.
[2022-04-11 06:43] LABS: HEMATOCRIT 38.7 % (36.7-47.1); MEAN CORPUSCULAR HEMOGLOBIN 30.4 uug (23.8-33.4); MEAN CORPUSCULAR VOLUME 89.2 fL (73.0-96.2); PLATELET COUNT (AUTO) 95 K/uL (152-348)
--- NOTE | 2022-04-11 08:30 | NUR ---
Alert, oriented x 3, forgetful at times. Room air 99%. Breakfast served able to eat 100% of food served. Bed bath given. Repositioned comfortably. Call light with in reach. Bed alarm on.
[2022-04-11] MEDS: DEXAMETHASONE SOD PHOSPHATE 4 MG INJ IV SCH (08:32)
[2022-04-11] MEDS: AMLODIPINE 10 MG TABLET PO SCH (08:32)
[2022-04-11] MEDS: HYDROCHLOROTHIAZIDE 12.5 MG CAPSULE PO SCH (08:32)
[2022-04-11] MEDS: BRIMONIDINE 0.2% OPHT DROP 10 ML BOTTLE EACHEYE SCH ×3 (08:33→16:52)
[2022-04-11 08:34] VITALS: BP 99/50
[2022-04-11] MEDS: DORZOLAMIDE 2% OPHT DROP 10 ML BOTTLE EACHEYE SCH ×3 (08:34→16:52)
[2022-04-11 12:00] VITALS: BP 114/71
--- NOTE | 2022-04-11 12:30 | NUR ---
Ate fairly, able to eat 100% of meal served
--- NOTE | 2022-04-11 14:00 | NUR ---
Asking for smoking, explained policy, agreed to coffee. Fall precaution re enforced
[2022-04-11 16:05] VITALS: BP 104/66
--- NOTE | 2022-04-11 17:53 | NUR ---
Afebrile. Maintained on room air, O2 sat of 98-99%
--- NOTE | 2022-04-11 19:25 | NUR ---
Received patient in bed awake, alert and oriented x 3. Denies chest pain. Afebrile. Respiration even and non labored, no noted acute distress. Bed in locked and low position. Call light within reach.
[2022-04-11 20:24] VITALS: BP 123/68
[2022-04-11] MEDS: TAMSULOSIN HCL 0.4 MG CAP.SR.24H PO SCH (21:25)
[2022-04-11] MEDS: LATANOPROST OPHT DROP 2.5 ML BOTTLE EACHEYE SCH (21:25)
[2022-04-11] MEDS: AZITHROMYCIN IV 500 MG in IV DEXTROSE 5% 250 ML IV SCH (21:25)
[2022-04-11] MEDS: ENOXAPARIN SODIUM 40 MG/0.4 ML DISP.SYRIN SQ SCH (21:27)
[2022-04-12 04:31] VITALS: BP 135/80
[2022-04-12] MEDS: PANTOPRAZOLE SODIUM 40 MG TABLET.DR PO SCH (06:07)
--- NOTE | 2022-04-12 06:48 | NUR ---
Slept well, skin is dry and warm to touch, afebrile. No noted SOB, no cough, no congestion. HOB elevated to patient's comfort. No noted adverse reaction IV antibiotics. Needs attended and anticipated. Call light place within easy reach.
[2022-04-12 07:03] LABS: HEMATOCRIT 35.5 % (36.7-47.1); MEAN CORPUSCULAR VOLUME 88.5 fL (73.0-96.2); PLATELET COUNT (AUTO) 116 K/uL (152-348)
[2022-04-12 07:18] LABS: CREATININE 0.9 mg/dL (0.6-1.3); MAGNESIUM 1.9 mg/dL (1.8-2.4); PHOSPHOROUS 3.5 mg/dL (2.5-4.9); POTASSIUM 3.2 mmol/L (3.5-5.1)
[2022-04-12] MEDS: HYDROCHLOROTHIAZIDE 12.5 MG CAPSULE PO SCH (09:02)
[2022-04-12] MEDS: DEXAMETHASONE SOD PHOSPHATE 4 MG INJ IV SCH (09:03)
[2022-04-12] MEDS ORDERED: POTASSIUM CHLORIDE 20 MEQ TAB.PRT.SR PO ONE (09:15)
[2022-04-12] MEDS: AMLODIPINE 10 MG TABLET PO SCH (09:34)
[2022-04-12] MEDS: DORZOLAMIDE 2% OPHT DROP 10 ML BOTTLE EACHEYE SCH ×3 (09:35→17:20)
[2022-04-12] MEDS: BRIMONIDINE 0.2% OPHT DROP 10 ML BOTTLE EACHEYE SCH ×3 (09:35→17:19)
[2022-04-12 12:00] VITALS: BP 136/62
[2022-04-12 16:46] VITALS: BP 115/68
--- NOTE | 2022-04-12 18:30 | NUR ---
Pt denies any c/o pain throughout shift. Pt of r/a with sat of 95%. Call light is within reach.
[2022-04-12 20:00] VITALS: BP 112/72
[2022-04-12 20:18] VITALS: BP 112/72
[2022-04-12] MEDS: AZITHROMYCIN IV 500 MG in IV DEXTROSE 5% 250 ML IV SCH (21:14)
[2022-04-12] MEDS: TAMSULOSIN HCL 0.4 MG CAP.SR.24H PO SCH (21:14)
[2022-04-12] MEDS: ENOXAPARIN SODIUM 40 MG/0.4 ML DISP.SYRIN SQ SCH (21:14)
[2022-04-12] MEDS: LATANOPROST OPHT DROP 2.5 ML BOTTLE EACHEYE SCH (21:15)
[2022-04-13 04:00] VITALS: BP 124/74
[2022-04-13] MEDS: PANTOPRAZOLE SODIUM 40 MG TABLET.DR PO SCH (06:04)
[2022-04-13 06:51] LABS: CREATININE 0.9 mg/dL (0.6-1.3); POTASSIUM 3.1 mmol/L (3.5-5.1)
[2022-04-13 07:56] VITALS: BP 138/62
[2022-04-13] MEDS ORDERED: POTASSIUM CHLORIDE 20 MEQ TAB.PRT.SR PO ONE (09:15)
[2022-04-13] MEDS: HYDROCHLOROTHIAZIDE 12.5 MG CAPSULE PO SCH (09:20)
[2022-04-13] MEDS: DEXAMETHASONE SOD PHOSPHATE 4 MG INJ IV SCH (09:25)
[2022-04-13] MEDS: AMLODIPINE 10 MG TABLET PO SCH (09:25)
[2022-04-13] MEDS: DORZOLAMIDE 2% OPHT DROP 10 ML BOTTLE EACHEYE SCH ×3 (09:28→16:13)
[2022-04-13] MEDS: BRIMONIDINE 0.2% OPHT DROP 10 ML BOTTLE EACHEYE SCH ×3 (09:28→16:13)
[2022-04-13 12:00] VITALS: BP 120/75
[2022-04-13 15:44] VITALS: BP 112/71
--- NOTE | 2022-04-13 17:42 | NUR ---
Discharge instructions given to patient and daughter aneesh via phone. Notified quarantine Till 04/22/22 and notified meds to be continued as listed and instructed pt daughter that if theres a medication not on the list to call primary doctor for advice. Verbalized understanding. Pt is in no acute distress No SOB noted.
== END 2022-04-13 18:00 | disposition home health service (06) | DRG 177 ==
LOC: ER 12:51 → MEDSURG3 21:18
PROVIDERS: ADMIT Nurse Practitioner Acute Care; ATTEND Nurse Practitioner Acute Care
DX: U07.1 COVID-19 (principal); N17.0 Acute kidney failure with tubular necrosis; J12.82 Pneumonia due to coronavirus disease 2019; E87.1 Hypo-osmolality and hyponatremia; D69.6 Thrombocytopenia, unspecified; D72.819 Decreased white blood cell count, unspecified; D72.820 Lymphocytosis (symptomatic); E78.5 Hyperlipidemia, unspecified; F01.50 Vascular dementia, unspecified severity, without behavioral disturbance, psychotic disturbance, mood disturbance, and anxiety; H40.9 Unspecified glaucoma; I10 Essential (primary) hypertension; M50.30 Other cervical disc degeneration, unspecified cervical region; K59.09 Other constipation; N40.0 Benign prostatic hyperplasia without lower urinary tract symptoms; Z86.73 Personal history of transient ischemic attack (TIA), and cerebral infarction without residual deficits; Z87.891 Personal history of nicotine dependence; Z98.84 Bariatric surgery status; I45.10 Unspecified right bundle-branch block; R31.9 Hematuria, unspecified; Z87.440 Personal history of urinary (tract) infections
CPT/HCPCS: 36415; 70450; 71045; 83605; 83735; 84100; 84443; 84484; 85025; 85730; 87040; 87086; 93005; 97161; G0378; J0456; J0696; J1100; J1650; J3475; J7040; J7050

== ENCOUNTER 2022-07-30 19:35 | Emergency (ER) | payer MEDICARE, OTHER ==
[~2022-07-30] VITALS: Ht 170.2 cm; Wt 81.6 kg
[~2022-07-30 19:35] MED LIST changes: +BIMA2.5D5 EACHEYE; +BRIM5DRO11 EACHEYE; -CEPH500T PO; -CRAN450T9 PO; +DORZ10DR10 EACHEYE; +NETA2.5D EACHEYE; -NITR-84 PO
--- NOTE | 2022-07-30 19:48 | NUR ---
Dr. Shannon at bedside for MSE
[2022-07-30] MEDS ORDERED: LIDOCAINE 2% (GLYDO= UROJET) 10 ML JELLY MM ONE ×2 (19:51→20:00)
--- NOTE | 2022-07-30 20:10 | NUR ---
Gaspar 16fr inserted aseptically, draining clear yellow urine to gravity.
--- NOTE | 2022-07-30 20:25 | NUR ---
Urine bag changed to leg bag for patient
--- NOTE | 2022-07-30 20:31 | NUR ---
Patient discharged to home in stable condition. Written and verbal after care instructions given. Patient verbalizes understanding of instructions. Stressed follow up or return to ER for worsening s/s.
[2022-07-30 21:29] VITALS: BP 132/77
[2022-07-30 21:33] LABS: *BLOOD, URINE 3+ (NEGATIVE); *CLARITY,URINE CLEAR (CLEAR); *COLOR,URINE YELLOW (YELLOW); *KETONES,URINE TRACE (NEGATIVE); LEUKOCYTE ESTERASE ,URINE NEGATIVE (NEGATIVE); NITRITE, URINE NEGATIVE (NEGATIVE); UGLUCOSE NEGATIVE (NEGATIVE)
[2022-07-30 21:35] LABS: *BILIRUBIN,URIN 1+ (NEGATIVE)
[2022-07-30 21:45] LABS: BACTERIA,URINE FEW /HPF (NONE SEEN); RBC,URINE 20-50 /HPF (0-3); SQUAMOUS EPITHELIAL CELL,UR FEW /HPF (NONE SEEN); WBC,URINE 0-3 /HPF (0-3)
== END 2022-07-30 21:29 | disposition home or self-care (01) ==
LOC: ER 19:35
DX: N40.1 Benign prostatic hyperplasia with lower urinary tract symptoms (principal); R33.8 Other retention of urine; F17.210 Nicotine dependence, cigarettes, uncomplicated; F01.50 Vascular dementia, unspecified severity, without behavioral disturbance, psychotic disturbance, mood disturbance, and anxiety; Z98.84 Bariatric surgery status; M50.30 Other cervical disc degeneration, unspecified cervical region; H40.9 Unspecified glaucoma; Z79.899 Other long term (current) drug therapy; Z86.73 Personal history of transient ischemic attack (TIA), and cerebral infarction without residual deficits
CPT/HCPCS: 51702; 87086; A4663

== ENCOUNTER 2022-08-07 17:38 | Emergency (ER) | payer MEDICARE, OTHER ==
[~2022-08-07] VITALS: Ht 348 cm; Wt 81.6 kg
--- NOTE | 2022-08-07 18:48 | NUR ---
1830pm: Dump Grounds Checker assumes care: 1st contact with patient in ER bed 4B, AOx4, minimal Slovak noted. Spouse is at bedside who speaks fluent Slovak. New 16 american urinary pearson catheter inserted aseptically. Leg bag provided. 1848pm: Patient discharged to home in stable condition with steady gait. Written and verbal after care instructions given to patient and spouse. Patient and family verbalized understanding and compliance of instructions. Stressed follow up with primary doctor and urologist or return to ER for worsening s/s.
== END 2022-08-07 18:49 | disposition home or self-care (01) ==
LOC: ER 17:59
DX: Z46.6 Encounter for fitting and adjustment of urinary device (principal); R33.9 Retention of urine, unspecified; F01.50 Vascular dementia, unspecified severity, without behavioral disturbance, psychotic disturbance, mood disturbance, and anxiety; Z86.73 Personal history of transient ischemic attack (TIA), and cerebral infarction without residual deficits; H40.9 Unspecified glaucoma; Z79.899 Other long term (current) drug therapy; Z98.84 Bariatric surgery status
CPT/HCPCS: 51702; A4663

== ENCOUNTER 2022-08-08 18:20 | Emergency (ER) | payer MEDICARE, OTHER ==
[~2022-08-08] VITALS: Ht 165.1 cm; Wt 81.6 kg
[2022-08-08] MEDS ORDERED: LIDOCAINE 2% (GLYDO= UROJET) 10 ML JELLY MM ONE ×2 (19:45→19:47)
--- NOTE | 2022-08-08 20:00 | NUR ---
Patient did not need his pearson catheter replaced. Current pearson catheter was repositioned, irrigated, and 500cc of straw colored urine was recovered in a urinal. Urine was non-odorous, but suspect that the reason for the pearson catheter not draining was that there was a clot lodged in the catheter. The clot/tissue was dislodged leading to good urinary output.
--- NOTE | 2022-08-08 20:16 | NUR ---
Patient discharged to home in stable condition. Written and verbal after care instructions given. Patient verbalizes understanding of instructions. Stressed follow up or return to ER for worsening s/s. Patient ambulated with a steady gait.
[2022-08-08 20:17] VITALS: BP 159/93
== END 2022-08-08 20:18 | disposition home or self-care (01) ==
LOC: ER 18:22
DX: T83.011A Breakdown (mechanical) of indwelling urethral catheter, initial encounter (principal); Y73.8 Miscellaneous gastroenterology and urology devices associated with adverse incidents, not elsewhere classified; Y92.89 Other specified places as the place of occurrence of the external cause; N40.1 Benign prostatic hyperplasia with lower urinary tract symptoms; R33.8 Other retention of urine; I45.10 Unspecified right bundle-branch block; R00.0 Tachycardia, unspecified; Z98.84 Bariatric surgery status; Z79.899 Other long term (current) drug therapy; F17.210 Nicotine dependence, cigarettes, uncomplicated
CPT/HCPCS: 51702; 93005

== ENCOUNTER 2022-08-12 10:49 | Emergency (ER) | payer MEDICARE, OTHER ==
[~2022-08-12] VITALS: Ht 167.6 cm; Wt 77.1 kg
--- NOTE | 2022-08-12 12:08 | NUR ---
Unable to flush or w/d on existing catheter (16f), so it was removed. Inserted new catheter (22f w/coude tip) aseptically and secured to leg. No significant drainage noted. Per MD, attempted to irrigated catheter, some resistance noted, but finally flushed w/approx 20ml saline although no w/d was possible. catheter reattached to leg bag and left to monitor drainage, MD aware.
[2022-08-12 12:43] LABS: HEMATOCRIT 39.8 % (36.7-47.1); MEAN CORPUSCULAR HEMOGLOBIN 30.9 uug (23.8-33.4); MEAN CORPUSCULAR VOLUME 91.5 fL (73.0-96.2); PLATELET COUNT (AUTO) 239 K/uL (152-348)
[2022-08-12 12:51] LABS: CREATININE 0.9 mg/dL (0.6-1.3); POTASSIUM 3.2 mmol/L (3.5-5.1)
--- NOTE | 2022-08-12 13:19 | NUR ---
Per MD, CT indicated that the catheter tip did not look like it was completely in the bladder. Deflated balloon on cath and advanced cath about 2-3cm, reinflated balloon and secured to leg again. immediate drainage was approx 1200ml.
[2022-08-12 13:23] LABS: *BILIRUBIN,URIN NEGATIVE (NEGATIVE); *BLOOD, URINE 3+ (NEGATIVE); *CLARITY,URINE SLIGHTLY CLOUDY (CLEAR); *COLOR,URINE YELLOW (YELLOW); *KETONES,URINE NEGATIVE (NEGATIVE); *UROBILINOGEN,URINE 0.2 E.U./dl (NORMAL); LEUKOCYTE ESTERASE ,URINE TRACE (NEGATIVE); NITRITE, URINE NEGATIVE (NEGATIVE); UGLUCOSE NEGATIVE (NEGATIVE)
[2022-08-12] MEDS ORDERED: CEPH500C2 PO (14:27)
--- NOTE | 2022-08-12 14:51 | NUR ---
PT WAS D/C'd TO HOME BY DR SANTOS. D/C INSTRUCTIONS GIVEN TO THE PT BY DR SANTOS.
[2022-08-12 14:52] VITALS: BP 141/72
[2022-08-12 15:35] LABS: BACTERIA,URINE NONE SEEN /HPF (NONE SEEN); RBC,URINE TNTC /HPF (0-3); SQUAMOUS EPITHELIAL CELL,UR FEW /HPF (NONE SEEN); WBC,URINE 0-3 /HPF (0-3)
== END 2022-08-12 14:53 | disposition home or self-care (01) ==
LOC: ER 10:49
DX: N40.1 Benign prostatic hyperplasia with lower urinary tract symptoms (principal); R33.8 Other retention of urine; H40.9 Unspecified glaucoma; Z46.6 Encounter for fitting and adjustment of urinary device; R31.9 Hematuria, unspecified; Z98.84 Bariatric surgery status; R00.0 Tachycardia, unspecified; I45.10 Unspecified right bundle-branch block
CPT/HCPCS: 36415; 85025; 93005